=== PATIENT | male | born 1990 | race African-American/Black ===

== ENCOUNTER 2018-08-09 06:47 | Emergency (ER) | payer MEDICAID, OTHER ==
[~2018-08-09] VITALS: Ht 182.9 cm; Wt 115.7 kg
--- OUTSIDE RECORDS SUMMARY | 2018-08-09 06:53 | XMS REPORT ---
Author Author JAQUELINE PATIÑO Organization [facility] Address [address] [place] [address] Care Team Providers Care Range Mechanic Name Role Phone JAQUELINE PATIÑO Unavailable PROBLEMS Type Condition ICD9-CM Code [id number] Code Onset Dates Condition Status SNOMED Code Problem Moderate persistent asthma with acute exacerbation J45.41 Active 011754008385434 Problem GERD without esophagitis K21.9 Active [id number] ALLERGIES Substance Reaction Event Type Date Status N.K.D.A. Unknown Non Drug Allergy Jun, Unknown SOCIAL HISTORY No smoking Hx information available PLAN OF CARE Activity Details Follow Up 3 Months Reason:f/u asthma VITAL SIGNS Height 71 in 2016-06-28 Weight 243.8 lbs 2016-06-28 Temperature 98.9 degrees Fahrenheit 2016-06-28 Heart Rate 70 bpm 2016-06-28 Respiratory Rate 28 2016-06-28 Oximetry 98 % 2016-06-28 BMI 34.00 kg/m2 2016-06-28 Blood pressure systolic 116 mmHg 2016-06-28 Blood pressure diastolic 78 mmHg 2016-06-28 MEDICATIONS Medication Instructions Dosage Frequency Start Date End Date Duration Status Flonase Allergy Relief 50 MCG/ACT Nasally Once a day 1 spray in each nostril 24h Jun, 30 day(s) Active Ventolin HFA 108 (90 Base) MCG/ACT Inhalation every 4 hrs 2 puffs as needed 4h Jun, 30 days Active Azithromycin 250 MG Orally Once a day 2 tablets on the first day, then 1 tablet daily for 4 days 24h Jun, Jun, 5 day(s) Active Omeprazole 20 mg Orally Once a day 2 capsules 24h Apr, Active Symbicort 80-4.5 MCG/ACT Inhalation Twice a day 2 puffs 12h Jun, Dec, 30 days Active RESULTS No Results PROCEDURES Procedure Date Ordered Related Diagnosis Body Site MEASURE BLOOD OXYGEN LEVEL Jun 28, 2016 DEPO MEDROL 40 MG/ML Jun 28, 2016 DEXAMETHASONE 4MG/ML (PER 1 MG) Jun 28, 2016 THER/PROPH/DIAG INJ, SC/IM Jun 28, 2016 Office Visit, Est Pt., Level 3 Jun 28, 2016 IMMUNIZATIONS Vaccine Route Administration Date Status DEXAMETHASONE 4MG/ML (PER 1 MG) IM Intramuscular Jun 28, 2016 Administered DEPO MEDROL 40 MG/ML IM Intramuscular Jun 28, 2016 Administered
--- OUTSIDE RECORDS SUMMARY | 2018-08-09 06:53 | XMS REPORT ---
Author Author JAQUELINE PATIÑO Organization [facility] Address [address] [place] [address] Care Team Providers Care Chemical Laboratory Tester Name Role Phone JAQUELINE PATIÑO Unavailable PROBLEMS Type Condition ICD9-CM Code [id number] Code Onset Dates Condition Status SNOMED Code Problem Moderate persistent asthma with acute exacerbation J45.41 Active 831964465145070 Problem GERD without esophagitis K21.9 Active 577660625 ALLERGIES No Known Allergies SOCIAL HISTORY Never Assessed PLAN OF CARE Activity Details Follow Up 3 Months Reason:gerd VITAL SIGNS Height 71 in 2016-09-19 Weight 248.5 lbs 2016-09-19 Temperature 98.9 degrees Fahrenheit 2016-09-19 Heart Rate 74 bpm 2016-09-19 Respiratory Rate 20 2016-09-19 BMI 34.65 kg/m2 2016-09-19 Blood pressure systolic 120 mmHg 2016-09-19 Blood pressure diastolic 76 mmHg 2016-09-19 MEDICATIONS Medication Instructions Dosage Frequency Start Date End Date Duration Status Ventolin HFA 108 (90 Base) MCG/ACT Inhalation every 4 hrs 2 puffs as needed 4h Jun, 30 days Active Symbicort 80-4.5 MCG/ACT Inhalation Twice a day 2 puffs 12h Jun, Dec, 30 days Active Flonase Allergy Relief 50 MCG/ACT Nasally Once a day 1 spray in each nostril 24h Jun, 30 day(s) Active Omeprazole 20 mg Orally Once a day 2 capsules 24h Apr, 30 days Active RESULTS Name Result Date Reference Range H PYLORI (IN HOUSE) 2016-09-19 H. PYLORI negative Control + Lot # [id number] Exp date 12/2016 PROCEDURES Procedure Date Ordered Result Body Site IMMUNOASSAY,INFECTIOUS AGENT September 19, 2016 IMMUNIZATIONS No Known Immunizations MEDICAL (GENERAL) HISTORY Type Description Date Medical History asthma Medical History acid reflux
--- OUTSIDE RECORDS SUMMARY | 2018-08-09 06:53 | XMS REPORT ---
Author Author JAQUELINE PATIÑO Organization [facility] Address [address] [place] [address] Care Team Providers Care Grooving Machine Operator Name Role Phone JAQUELINE PATIÑO Unavailable PROBLEMS Type Condition ICD9-CM Code SFQ95-RQ Code Onset Dates Condition Status SNOMED Code Problem Moderate persistent asthma with acute exacerbation J45.41 Active 236551973425590 Problem GERD without esophagitis K21.9 Active 973225802 ALLERGIES Substance Reaction Event Type Date Status N.K.D.A. Unknown Non Drug Allergy Apr, Unknown SOCIAL HISTORY No smoking Hx information available PLAN OF CARE Activity Details Follow Up prn Reason: VITAL SIGNS Height 71 in 2016-04-30 Weight 235.9 lbs 2016-04-30 Temperature 98.8 degrees Fahrenheit 2016-04-30 Heart Rate 71 bpm 2016-04-30 Respiratory Rate 82 2016-04-30 Oximetry 96 % 2016-04-30 BMI 32.90 kg/m2 2016-04-30 Blood pressure systolic 120 mmHg 2016-04-30 Blood pressure diastolic 78 mmHg 2016-04-30 MEDICATIONS Medication Instructions Dosage Frequency Start Date End Date Duration Status Omeprazole 20 mg Orally Once a day 2 capsules 24h Apr, Active PredniSONE 20 mg Orally Once a day 2 tabs daily x 3 days, 1 tab daily x 3 days 24h Apr, Apr, 6 days Active Azithromycin 250 MG Orally Once a day 2 tablets on the first day, then 1 tablet daily for 4 days 24h Apr, Apr, 5 day(s) Active RESULTS No Results PROCEDURES Procedure Date Ordered Related Diagnosis Body Site MEASURE BLOOD OXYGEN LEVEL Apr 30, 2016 Office Visit, Est Pt., Level 3 Apr 30, 2016 IMMUNIZATIONS No Known Immunizations
--- OUTSIDE RECORDS SUMMARY | 2018-08-09 06:53 | XMS REPORT | CCD ---
Author Author LV BLANCO Unknown Address [address] [facility] [address] [place], [place] [address] Care Team Providers Care Computational Biologist Name Role Phone [place], KATHY DO Attphys [place], KATHY DO Prisurg Vital Signs Unknown or Not Available. Allergies Unknown or Not Available. Procedures Procedure Code Procedure Type Date BAN AERO ECLIPSE TREATMENT #[id number] 2013 BAN AERO ECLIPSE TREATMENT [id number] SNOM[address] CT 03/13/2014 History of Immunizations Unknown or Not Available. Problems Unknown or Not Available. Results Unknown or Not Available. Medications Unknown or Not Available. Medications Administered Unknown or Not Available. Encounters Encounter Diagnosis Diagnosis Code Start Date UNSPECIFIED ASTHMA W ACUTE EXACERB 37637 03/13/2014 Social History Smoking Status Code Start Date End Date Current every day smoker 236191054 Patient Decision Aids Unknown or Not Available. Discharge Instructions You were admitted to [facility] on 03/13/2014 with a principal diagnosis of UNSPECIFIED ASTHMA W ACUTE EXACERB. You were discharged from [facility] on 03/13/2014. Should you have any questions prior to discharge, please contact a member of your healthcare team. If you have left the hospital and have any questions, please contact your primary care physician. Chief Complaint and Reason For Visit Chief Complaint Date of Onset ALLERGY Function Status Unknown or Not Available. Referral/Transition of Care Unknown or Not Available.
--- OUTSIDE RECORDS SUMMARY | 2018-08-09 06:53 | XMS REPORT | CCD ---
Author Author DAFNE BARAJAS Organization Unknown Address [address] [facility] [address] [place], [place] [address] Care Team Providers Care Crutcher Helper Name Role Phone WALLY DORSEY MD Attphys WALLY DORSEY MD Prisurg Vital Signs Unknown or Not Available. Allergies Allergy Code Allergy Type Reaction Status No Known Drug Allergies 0 No known drug allergies Active Procedures Unknown or Not Available. History of Immunizations Unknown or Not Available. Problems Unknown or Not Available. Results Unknown or Not Available. Active Medications Unknown or Not Available. Medications Administered During Visit Unknown or Not Available. Encounters Encounter Diagnosis Diagnosis Code Start Date Noninfectious gastroenteritis 08487409 01/26/2016 Social History Smoking Status Code Start Date End Date Current every day smoker 750945978 Patient Decision Aids Unknown or Not Available. Discharge Instructions You were admitted to [facility] on 01/26/2016 18:24 with a principal diagnosis of Noninfective gastroenteritis and colitis, unspecified You were discharged from [facility] on 01/26/2016 21:26 Should you have any questions prior to discharge, please contact a member of your healthcare team. If you have left the hospital and have any questions, please contact your primary care physician. Chief Complaint and Reason For Visit Chief Complaint Date of Onset HEADACHE VOMITING Function Status Unknown or Not Available. Plan of Care Unknown or Not Available. Referral/Transition of Care Unknown or Not Available.
--- OUTSIDE RECORDS SUMMARY | 2018-08-09 06:53 | XMS REPORT ---
Author Author JAQUELINE PATIÑO [facility] Address [address] [place] [address] Care Team Providers Care Hadoop Developer Name Role Phone JAQUELINE PATIÑO Unavailable PROBLEMS Type Condition ICD9-CM Code ECN57-RR Code Onset Dates Condition Status SNOMED Code Problem Moderate persistent asthma with acute exacerbation J45.41 Active 125710975827331 Problem GERD without esophagitis K21.9 Active 371156764 ALLERGIES No Information ENCOUNTERS Encounter Location Date Diagnosis [facility] [employer] [id number] [place] [address] October GERD without esophagitis K21.9 [facility] [id number], [place] [address] May, Bronchitis J40 and Moderate persistent asthma with acute exacerbation J45.41 [facility] [address] [facility] [id number] [place] [phone] Mar, Fatigue, unspecified type R53.83 ; Worried well Z71.1 ; Pain in right shoulder M25.511 ; Lumbar pain on palpation M54.5 and General medical exam Z00.00 [facility] [employer] [id number] [place] [address] Sep GERD without esophagitis K21.9 [facility] [id number] [place] [address] Jun Moderate persistent asthma with acute exacerbation J45.41 [facility] [employer] [id number] [place] [address] Apr GERD without esophagitis K21.9 and Acute nasopharyngitis J00 IMMUNIZATIONS No Known Immunizations SOCIAL HISTORY Never Assessed REASON FOR VISIT Medication refill request PLAN OF CARE VITAL SIGNS MEDICATIONS Medication Instructions Dosage Frequency Start Date End Date Duration Status Omeprazole 20 mg Orally Once a day 2 capsules 24h Apr, 30 days Active RESULTS No Results PROCEDURES No Known procedures INSTRUCTIONS MEDICATIONS ADMINISTERED No Known Medications MEDICAL (GENERAL) HISTORY Type Description Date Medical History asthma Medical History acid reflux
[2018-08-09] MEDS ORDERED: TETANUS,DIPTH,PERTUSS P/F (BOOSTRIX) 0.5 ML VIAL IM ONE (07:15)
[2018-08-09] MEDS ORDERED: LIDOCAINE 1% INJ 20 ML 20 ML VIAL INJ ONE (07:15)
--- NOTE | 2018-08-09 07:38 | Diagnostic Imaging Report ---
INDICATION: Laceration COMPARISON: None FINDINGS: Two views of the left knee demonstrate no fracture or dislocation. Articular surfaces are normal. There is no radiopaque foreign body. IMPRESSION: Negative left knee Dictated by: Dictated on workstation # [id number]
[2018-08-09] MEDS ORDERED: TRIM/SULFAMETH 160/800 (SEPTRA DS) TAB PO ONE (08:00)
[2018-08-09] MEDS ORDERED: SULF1TAB35 PO (08:06)
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
[2018-08-09 08:10] VITALS: BP 140/96
== END 2018-08-09 08:15 | disposition home or self-care (01) ==
LOC: ER 06:49
DX: S71.112A Laceration without foreign body, left thigh, initial encounter (principal); F12.10 Cannabis abuse, uncomplicated; Z23 Encounter for immunization; W18.30XA Fall on same level, unspecified, initial encounter; W25.XXXA Contact with sharp glass, initial encounter
CPT/HCPCS: 12002; 73560; 90715